=== PATIENT | male | born 1965 | race Caucasian/White ===

== ENCOUNTER 2018-07-09 09:49 | Emergency (ER) | payer SELFPAY ==
[2018-07-09 10:33] VITALS: BP 162/102
--- NOTE | 2018-07-09 10:59 | UC ---
Throat Pain/Nasal John HPI - HPI Summary HPI Summary: Pt present with several months of sinus congestion and ear fullness. Pt taking allergy med with little improvement.No fever, chills Now with progressive sinus pressure, sore throat. No fever, chills + ears full and plug No cp, sob, abd pain No n/v/d Pt's medications reviewed this visit - History of Current Complaint Chief Complaint: UCRespiratory Stated Complaint: BILAT EAR,SINUS CONGESTION Time Seen by Provider: 07/09/18 10:58 Hx Obtained From: Patient Pain Intensity: 1 - Allergies/Home Medications Allergies/Adverse Reactions: Allergies Allergy/AdvReac Type Severity Reaction Status Date / Time No Known Allergies Allergy Verified 07/09/18 10:33 Home Medications: Home Medications Eucalyptus Oil/Menthol/Camphor [Vicks Vaporub Ointment] 1 unit TOPICAL ONCE PRN 07/09/18 [History Confirmed 07/09/18] PMH/Surg Hx/FS Hx/Imm Hx Previously Healthy: Yes - Surgical History Surgical History: Yes Surgery Procedure, Year, and Place: mass on ear removed - Family History Known Family History: Positive: Non-Contributory - Social History Occupation: Retired Lives: With Family Alcohol Use: Daily Alcohol Amount: 6 pack/day Substance Use Type: Marijuana Smoking Status (MU): Former Smoker When Did the Patient Quit Smoking/Using Tobacco: 3-4 years ago Review of Systems All Other Systems Reviewed And Are Negative: Yes Constitutional: Positive: Negative Skin: Positive: Negative ENT: Positive: Ear Ache, Nasal Discharge, Sinus Congestion, Sinus Pain/ Tenderness Respiratory: Positive: Negative Cardiovascular: Positive: Negative Physical Exam - Summary Physical Exam Summary: Vital Signs Reviewed: Yes A+Ox3, no distress Eyes: Conjunctiva Clear, NADIRA. EOM intact and full ENT: Hearing grossly normal TM x 2 clear, turbinates inflammed and boggy, + PND , mmoist, no exudate, uvula midline Respiratory: Positive: No respiratory distress, No accessory muscle use + CTA throughout no w/r Cardiovascular: RRR nl s1, s2 no m/r CBT <2 sec abd soft + BS nt/nd no guarding, no distension Musculoskeletal Exam: [place] x 4 without difficulty Strength Intact, ROM Intact Neurological: Positive: Alert, + sensation throughout Psychological: Positive: Normal Response To Family Skin: Positive: no rash, no ecchymosis Triage Information Reviewed: Yes Vital Signs: Initial Vital Signs Temp 98.5 F 07/09/18 10:28 Pulse 97 07/09/18 10:28 Resp 14 07/09/18 10:28 BP 162/102 07/09/18 10:28 Pulse Ox 99 07/09/18 10:28 Throat Pain/Nasal Course/Dx - Course Course Of Treatment: Pt presents to with congestion and pressure x 2 months. Pt states x 1 month with progressive sinus pressure, dental pain, headache and thck secretions VSS Exam c/w rhinosinusitis Will start abx flonase allergy med Pt withHTN - recommend f/u with pcp - Differential Dx/Diagnosis Provider Diagnosis: Rhinosinusitis Discharge - Sign-Out/Discharge Documenting (check all that apply): Patient Departure All imaging exams completed and their final reports reviewed: No Studies - Discharge Plan Condition: Stable Disposition: HOME Prescriptions: Amoxicillin PO (*) [Amoxicillin 500 MG CAP*] 500 mg PO Q12H #14 cap Fluticasone NASAL SPRAY 50MCG* [Flonase NASAL SPRAY 50MCG*] 2 spray BOTH NARES DAILY #1 btl Loratadine 10 mg PO DAILY #30 capsule Patient Education Materials: Rhinosinusitis (ED) Referrals: [facility] [place] [facility] [Outside] No Primary Care Phys,NOPCP [Primary Care Provider] - Additional Instructions: - Take antibiotics as prescribed - Use nasal spray daily and allergy medicine daily as prescribed - Stay well hydrated. Drink plenty of non-alcoholic, non-caffinated beverages. - Alternate ibuprofen (Advil, Motrin) 600mg and Tylenol every 3 hours for pain or fever. Take with food. Do NOT take for more than 4-5 days. - These infections are spread by secretions - do NOT share eating or drinking utensils - clean items you share with other people such as cell phones, computer mouse, TV remote, computer tablets,etc. Once you have been on antibiotics for 2 days, change your toothbrush and your pillowcase. - get plenty of restful sleep - humidify the air in the room where you sleep - boil water, run a hot steam shower, vaporizer, cups of water by heat register - As discussed, your blood pressure was high today. It is recommended you schedule a follow-up with a primary care provider. The number provided can assist you in making an appointment - contact your doctor or return with questions or concerns - Billing Disposition and Condition Condition: STABLE Disposition: Home
== END 2018-07-09 11:22 | disposition home or self-care (01) ==
LOC: UCCORT 09:49
DX: J32.9 Chronic sinusitis, unspecified (principal); I10 Essential (primary) hypertension; H92.09 Otalgia, unspecified ear; Z79.899 Other long term (current) drug therapy; Z87.891 Personal history of nicotine dependence
CPT/HCPCS: 99202; G0463